=== PATIENT | male | born 1975 | race Caucasian/White ===

== ENCOUNTER 2017-10-21 14:53 | Emergency (ER) | payer OTHER ==
[2017-10-21] MEDS ORDERED: MORPHINE 4 MG/ML SYR ONE ×2 (16:28→19:51)
[2017-10-21] MEDS ORDERED: ONDANSETRON 4 MG/2 ML VIAL ONE ×2 (16:28→19:51)
--- NOTE | 2017-10-21 16:32 | RAD REPORT ---
EXAM DESCRIPTION: RAD - Foot Left 3 View - 10/21/2017 4:16 pm CLINICAL HISTORY: Left Foot pain FINDINGS: No fracture or dislocation is seen. A lateral soft tissue ulceration is present without underlying bony destruction seen
[2017-10-21 16:57] LABS: Absolute Lymphocytes (CBC) 2.4 K/uL (0.7-4.9); Absolute Monocytes 0.7 K/uL (0.1-1.3); Absolute Neutrophil 4.8 K/uL (1.8-8.0); Basophils % 0.6 % (0-1.3); Eosinophils % 3.3 % (0-4.4); Hematocrit 42.8 % (39.6-49.0); Lymphocytes % 28.8 % (15.3-44.8); MCH 33.1 pg (27.0-35.0); MPV 10.8 fL (7.6-11.3); RBC Red Blood Cell Count 4.56 M/uL (4.33-5.43)
[2017-10-21] MEDS ORDERED: INSULIN -REGULAR HUMAN 50 UNIT/0.5 ML ML ONE (16:58)
[2017-10-21 17:05] LABS: Protime INR 0.99
[2017-10-21 17:13] LABS: Urine Bacteria NONE SEEN /HPF (NONE SEEN); Urine Culture Reflex Order NOT NEEDED; Urine RBC NONE SEEN /HPF (NONE SEEN)
[2017-10-21] MEDS ORDERED: NA CHLORIDE 0.9% 1,000 ML ONE ×2 (17:13→18:42)
[2017-10-21 17:14] LABS: Bilirubin Direct 0.2 mg/dL (0-0.2); Bilirubin Total 0.6 mg/dL (0.2-1.0); C-Reactive Protein 5.61 mg/L (<3.00); Potassium 3.7 mmol/L (3.5-5.1); Protein, Total 7.2 g/dL (6.4-8.2)
[2017-10-21 17:14] LABS: Urine Blood NEGATIVE (NEG); Urine Glucose 2+ (NEG); Urine Protein NEGATIVE (NEG); Urine Specific Gravity <1.005 (1.005-1.030); Urine pH 5.5 (5.0-7.0)
[2017-10-21] MEDS ORDERED: FENTANYL CITR 100 MCG/2 ML ONE (17:44)
[2017-10-21] MEDS ORDERED: Levofloxacin500mg IV 500 MG/100 ML BAG IV ONE (18:43)
--- NOTE | 2017-10-21 20:54 | ER ---
Nurse's Notes [facility] Name: Filippo Miranda Age: 42 yrs Sex: Male : 1975 Arrival Date: 10/21/2017 Time: 14:58 Bed 6 Private MD: ZACH MOSQUEDA Diagnosis: Cellulitis of left lower limb-Left Foot;Diabetes mellitus due to underlying condition with hyperglycemia Presentation: 10/21 15:00 Presenting complaint: Patient states: quarter sized sore on under left 5th toe started sv Thursday. Pain goes up into the foot. c/o foul odor and drainage. Transition of care: patient was not received from another setting of care. Onset of symptoms was October 16, 2017. Care prior to arrival: None. 15:00 Method Of Arrival: Ambulatory sv 15:00 Acuity: RUBIA 3 sv 21:14 Risk Assessment: Do you want to hurt yourself or someone else? Patient reports no rv desire to harm self or others. Initial Sepsis Screen: Does the patient meet any 2 criteria? RR > 20 per min. HR > 90 bpm. Yes Does the patient have a suspected source of infection? Yes: Skin breakdown/wound. Historical: - Allergies: 15:03 PENICILLINS; sv - PMHx: 15:03 Diabetes - IDDM; Hypertension; neuropathy; pancreas doesn't work; sv - PSHx: 15:03 None; sv - Immunization history:: Adult Immunizations up to date. - Social history:: Smoking status: Patient uses tobacco products, smokes one-half pack cigarettes per day. - Ebola Screening: : No symptoms or risks identified at this time. Screenin:02 Abuse screen: Denies threats or abuse. Denies injuries from another. Nutritional hb screening: No deficits noted. Tuberculosis screening: No symptoms or risk factors identified. Fall Risk None identified. Assessment: 15:15 General: Appears in no apparent distress. comfortable, well groomed, well developed, sg well nourished, Behavior is calm, cooperative, appropriate for age. Pain: Complains of pain in right foot and left foot Quality of pain is described as stabbing, throbbing. Neuro: Level of Consciousness is awake, alert, obeys commands, Oriented to person, place, time, situation, Mini Bar Attendant are equal bilaterally Moves all extremities. Full function Speech is normal, Facial symmetry appears normal. Cardiovascular: Heart tones S1 S2 present Capillary refill is brisk in bilateral fingers toes Chest pain is denied. Respiratory: Airway is patent Respiratory effort is even, unlabored, Respiratory pattern is regular, symmetrical, Breath sounds are clear. GI: Abdomen is round non-distended, Bowel sounds present X 4 quads. : No signs and/or symptoms were reported regarding the genitourinary system. EENT: No deficits noted. Derm: No deficits noted. Skin is pink, warm \T\ dry. Musculoskeletal: Capillary refill is brisk, in bilateral fingers. toes. Swelling present in right foot and left foot dried blood noted around toe nails on BLE. 17:08 Reassessment: Patient appears in no apparent distress at this time. Patient and/or hb family updated on plan of care and expected duration. Pain level reassessed. Patient is alert, oriented x 3, equal unlabored respirations, skin warm/dry/pink. 18:00 Reassessment: Patient appears in no apparent distress at this time. Patient and/or hb family updated on plan of care and expected duration. Pain level reassessed. Patient is alert, oriented x 3, equal unlabored respirations, skin warm/dry/pink. 18:45 Reassessment: Patient appears in no apparent distress at this time. No changes from hb previously documented assessment. Patient and/or family updated on plan of care and expected duration. Pain level reassessed. Patient is alert, oriented x 3, equal unlabored respirations, skin warm/dry/pink. 19:00 Reassessment: RECD REPORT FROM KEM CRUM. 42YO WM P/W LEFT FOOT DIABETIC WOUND. ABX bp INFUSING PRIOR TO DISPO. bp. 20:01 Reassessment: Patient appears in no apparent distress at this time. Patient and/or rv family updated on plan of care and expected duration. Pain level reassessed. Patient is alert, oriented x 3, equal unlabored respirations, skin warm/dry/pink. second lactate drawn and sent to lab. patient is hungry, given cold sandwich. vital signs are stable. Vital Signs: 15:03 BP 141 / 72; Pulse 122; Resp 18; Temp 97.8; Pulse Ox 96% ; Weight 108.86 kg; Height 5 sv ft. 11 in. (180.34 cm); Pain 7/10; 17:00 BP 129 / 78; Pulse 100; Resp 16; Pulse Ox 98% on R/A; hb 18:44 BP 133 / 77; Pulse 89; Resp 17; Pulse Ox 100% on R/A; hb 19:00 BP 148 / 77; Pulse 88; Resp 16; Pulse Ox 99% ; hb 20:06 BP 139 / 91; Pulse 88; Resp 18; Pulse Ox 97% on R/A; rv 21:00 BP 137 / 83; Pulse 90; Resp 20; Pulse Ox 96% ; bp 15:03 Body Mass Index 33.47 (108.86 kg, 180.34 cm) sv ED Course: 14:58 Patient arrived in ED. sb2 14:59 ZACH MOSQUEDA is Private Physician. sb2 15:02 Triage completed. sv 15:04 Arm band placed on right wrist. sv 15:17 Wolfgang Beasley PA is PHCP. cp 15:17 Wes Breaux MD is Attending Physician. cp 15:28 Brooks Yuen, SKYLA is Primary Nurse. sg 15:45 Patient has correct armband on for positive identification. Bed in low position. Call hb light in reach. Side rails up X 1. 16:15 Initial lab(s) drawn, by me, sent to lab. First set of blood cultures drawn by me. sg Inserted saline lock: 20 gauge in right antecubital area, using aseptic technique. Blood collected. 16:16 XRAY Foot LEFT 3 View In Process Unspecified. EDMS 16:30 Second set of blood cultures drawn by me. sg 16:51 Urine collected: clean catch specimen, clear. dh3 20:53 ZACH MOSQUEDA is Referral Physician. cp 21:03 No provider procedures requiring assistance completed. IV discontinued, intact, bp bleeding controlled, No redness/swelling at site. Pressure dressing applied. Administered Medications: 16:42 Drug: morphine 4 mg Route: IVP; Site: right antecubital; sg 17:20 Follow up: Response: No adverse reaction; Pain is unchanged, physician notified hb 16:42 Drug: Zofran 4 mg Route: IVP; Site: right antecubital; sg 17:20 Follow up: Response: No adverse reaction; Nausea is decreased hb 17:00 Drug: Insulin Regular Human 5 units {Co-Signature: sg (Brooks Yuen RN).} Route: IVP; hb Site: right antecubital; 17:45 Follow up: Response: No adverse reaction; Blood sugar is lowered sg 17:19 Drug: NS 0.9% 1000 ml Route: IV; Rate: 1 bolus; Site: right antecubital; sg 17:45 Drug: fentaNYL (PF) 50 mcg Route: IVP; Site: right antecubital; sg 18:30 Follow up: Response: No adverse reaction; Pain is unchanged, physician notified sg 18:46 Drug: LevaQUIN 500 mg Volume: 100 ml; Route: IVPB; Infused Over: 60 mins; Site: right sg antecubital; 20:00 Drug: morphine 4 mg Route: IVP; Site: right antecubital; rv 20:55 Follow up: Response: No adverse reaction; Pain is decreased bp 20:00 Drug: Zofran 4 mg Route: IVP; Site: right antecubital; rv 20:55 Follow up: Response: Nausea is decreased bp Point of Care Testing: Blood Glucose: 17:47 Blood Glucose: 245 mg/dL; dh3 21:02 Blood Glucose: 266 mg/dL; bp Ranges: Outcome: 21:13 Discharge ordered by MD. rv 21:13 Discharged to home ambulatory. rv 21:13 Condition: improved 21:13 Discharge instructions given to patient, Instructed on discharge instructions, follow up and referral plans. medication usage. 21:15 Patient left the ED. rv Addendum: 10/27/2017 08:00 Addendum: Culture Results: Positive urine culture. Phone call Attempt #1 attempted to s s call patient, no answer. Left VM. Signatures: Dispatcher [employer] Suzanne Terrell RN RN Brooks Yuen RN RN sg Smirch, Shelby, RN RN ss Wolfgang Beasley PA PA cp Jacklyn Mcfarland RN RN [place] 3 Rob Starr RN RN bp Amber Chun 2 Jose Antonio Silva RN RN rv Brooks Yuen RN sg Corrections: (The following items were deleted from the chart) 10/21 19:44 19:00 Reassessment: RECD REPORT FROM KEM CRUM. 42YO WM P/W LEFT FOOT DIABETIC WOUND. bp ABX INFUSING PRIOR TO DISPO hb 21:14 20:54 Discharge ordered by MD. cp rv
--- NOTE | 2017-10-21 20:55 | EDPHYS ---
Physician Documentation [facility] Name: Filippo Miranda Age: 42 yrs Sex: Male : 1975 Arrival Date: 10/21/2017 Time: 14:58 Bed 6 Private MD: ZACH MOSQUEDA ED Physician Wes Breaux HPI: 10/21 15:45 This 42 yrs old Male presents to ER via Ambulatory with complaints of Foot cp Pain - diabetic sore. 15:45 The patient presents with pain, that is acute, swelling, tenderness, pressure ulcer. cp 15:45 The complaints affect the left foot. Onset: The symptoms/episode began/occurred 1 cp week(s) ago. Associated signs and symptoms: Pertinent positives: warmth, Pertinent negatives calf tenderness, fever. Treatment prior to arrival includes: currently taking oral Bactrim. Severity of symptoms: in the emergency department the symptoms are unchanged. Historical: - Allergies: 15:03 PENICILLINS; sv - PMHx: 15:03 Diabetes - IDDM; Hypertension; neuropathy; pancreas doesn't work; sv - PSHx: 15:03 None; sv - Immunization history:: Adult Immunizations up to date. - Social history:: Smoking status: Patient uses tobacco products, smokes one-half pack cigarettes per day. - Ebola Screening: : No symptoms or risks identified at this time. ROS: 15:52 Constitutional: Negative for body aches, chills, fever, poor PO intake. cp 15:52 Eyes: Negative for injury, pain, redness, and discharge. cp 15:52 ENT: Negative for drainage from ear(s), ear pain, sore throat, difficulty swallowing, difficulty handling secretions. 15:52 Cardiovascular: Negative for chest pain, edema, palpitations. 15:52 Respiratory: Negative for cough, shortness of breath, wheezing. 15:52 Abdomen/GI: Negative for abdominal pain, nausea, vomiting, and diarrhea, black/tarry stool, rectal bleeding. 15:52 MS/extremity: Positive for erythema, pain, swelling, tenderness, warmth, of the left foot, pressure ulcer. 15:52 Skin: Positive for cellulitis, of the left foot. 15:52 Neuro: Negative for altered mental status, headache. 15:52 All other systems are negative. Exam: 15:58 Constitutional: The patient appears in no acute distress, alert, awake, non-toxic, well cp developed, well nourished. 15:58 Head/Face: Normocephalic, atraumatic. cp 15:58 Eyes: Periorbital structures: appear normal, Conjunctiva: normal, no exudate, no injection, Sclera: no appreciated abnormality, Lids and lashes: appear normal, bilaterally. 15:58 ENT: External ear(s): are unremarkable, Nose: is normal, Mouth: is normal, Posterior pharynx: is normal, airway is patent, no erythema, no exudate. 15:58 Chest/axilla: Inspection: normal, Palpation: is normal, no crepitus, no tenderness. 15:58 Cardiovascular: Rate: tachycardic, Rhythm: regular, Pulses: Pulses are 1+ in left dorsalis pedis artery. Edema: is not appreciated, JVD: is not appreciated. 15:58 Respiratory: the patient does not display signs of respiratory distress, Respirations: normal, no use of accessory muscles, no retractions, no splinting, no tachypnea, labored breathing, is not present, Breath sounds: are clear throughout, no decreased breath sounds, no stridor, no wheezing. 15:58 Abdomen/GI: Inspection: abdomen appears normal, Palpation: abdomen is soft and non-tender, in all quadrants. 15:58 Back: pain, is absent, ROM is normal. 15:58 Skin: cellulitis, that is mild, patchy, on the left foot, pressure ulcer lateral aspect proximal to fifth toe. 15:58 Neuro: Orientation: to person, place \T\ time. Mentation: is normal, Cerebellar function: is grossly normal, Motor: moves all fours, strength is normal, Sensation: no obvious gross deficits. 17:02 ECG was reviewed by the Attending Physician. cp Vital Signs: 15:03 BP 141 / 72; Pulse 122; Resp 18; Temp 97.8; Pulse Ox 96% ; Weight 108.86 kg; Height 5 sv ft. 11 in. (180.34 cm); Pain 7/10; 17:00 BP 129 / 78; Pulse 100; Resp 16; Pulse Ox 98% on R/A; hb 18:44 BP 133 / 77; Pulse 89; Resp 17; Pulse Ox 100% on R/A; hb 19:00 BP 148 / 77; Pulse 88; Resp 16; Pulse Ox 99% ; hb 20:06 BP 139 / 91; Pulse 88; Resp 18; Pulse Ox 97% on R/A; rv 21:00 BP 137 / 83; Pulse 90; Resp 20; Pulse Ox 96% ; bp 15:03 Body Mass Index 33.47 (108.86 kg, 180.34 cm) sv MDM: 15:22 Patient medically screened. cp 16:00 Differential diagnosis: abscess, cellulitis, osteomyelitis, sepsis, DKA. cp 20:52 Data reviewed: vital signs, nurses notes, lab test result(s), EKG, radiologic studies, cp plain films. 20:52 Test interpretation: by ED physician or midlevel provider: plain radiologic studies. cp Counseling: I had a detailed discussion with the patient and/or guardian regarding: the historical points, exam findings, and any diagnostic results supporting the discharge/admit diagnosis, lab results, radiology results, the need for outpatient follow up, a family practitioner, to return to the emergency department if symptoms worsen or persist or if there are any questions or concerns that arise at home. Response to treatment: the patient's symptoms have markedly improved after treatment, VSS. Pain improved. Will discharge to home for continued monitoring. 10/21 15:49 Order name: Urine Microscopic Only; Complete Time: 17:28 cp 10/21 15:49 Order name: Basic Metabolic Panel; Complete Time: 17:28 cp 10/21 17:28 Interpretation: Normal except: NA 133; GLUC 330; GFR 66. cp 10/21 15:49 Order name: Blood Culture Adult (2) cp 10/21 15:49 Order name: C-Reactive Protein; Complete Time: 17:28 cp 10/21 15:49 Order name: CBC with Diff; Complete Time: 17:28 cp 10/21 15:49 Order name: Lactate; Complete Time: 17:28 cp 10/21 17:28 Interpretation: Abnormal: LAC 2.3. cp 10/21 15:49 Order name: LFT's; Complete Time: 17:28 cp 10/21 15:49 Order name: Procalcitonin; Complete Time: 17:43 cp 10/21 15:49 Order name: Protime (+inr); Complete Time: 17:28 cp 10/21 15:49 Order name: Ptt, Activated; Complete Time: 17:28 cp 10/21 15:49 Order name: Sed Rate; Complete Time: 17:28 cp 04 16:53 Order name: Urine Dipstick--Ancillary (enter results); Complete Time: 17:28 em1 10/21 16:53 Order name: Glucose, Ancillary Testing; Complete Time: 16:56 EDMS 04 18:52 Order name: Wound Culture sg 10/21 15:49 Order name: Accucheck; Complete Time: 16:50 cp 10/21 15:49 Order name: Cardiac monitoring; Complete Time: 16:50 cp 10/21 15:49 Order name: EKG - Nurse/Tech; Complete Time: 16:51 cp 04 15:49 Order name: IV Saline Lock - Large Bore; Complete Time: 16:50 cp 04 15:49 Order name: Labs collected and sent; Complete Time: 16:50 cp /04 15:49 Order name: XRAY Foot LEFT 3 View; Complete Time: 16:43 cp 04 20:23 Order name: Lactate Sepsis 2 HR Follow-up; Complete Time: 20:50 EDMS 10/21 15:49 Order name: O2 Per Protocol; Complete Time: 16:50 cp 10/21 15:49 Order name: O2 Sat Monitoring; Complete Time: 16:50 cp 04 15:49 Order name: Urine Dipstick-Ancillary (obtain specimen); Complete Time: 16:50 cp /04 20:51 Order name: Accucheck Blood Glucose; Complete Time: 21:01 cp EC:02 Rate is 100 beats/min. Rhythm is regular. MI interval is normal. QRS interval is cp normal. QT interval is normal. T waves are Inverted in lead III. No ST changes noted. Interpreted by me. Reviewed by me. Administered Medications: 16:42 Drug: morphine 4 mg Route: IVP; Site: right antecubital; sg 17:20 Follow up: Response: No adverse reaction; Pain is unchanged, physician notified hb 16:42 Drug: Zofran 4 mg Route: IVP; Site: right antecubital; sg 17:20 Follow up: Response: No adverse reaction; Nausea is decreased hb 17:00 Drug: Insulin Regular Human 5 units {Co-Signature: sg (Brooks Yuen RN).} Route: IVP; hb Site: right antecubital; 17:45 Follow up: Response: No adverse reaction; Blood sugar is lowered sg 17:19 Drug: NS 0.9% 1000 ml Route: IV; Rate: 1 bolus; Site: right antecubital; sg 17:45 Drug: fentaNYL (PF) 50 mcg Route: IVP; Site: right antecubital; sg 18:30 Follow up: Response: No adverse reaction; Pain is unchanged, physician notified sg 18:46 Drug: LevaQUIN 500 mg Volume: 100 ml; Route: IVPB; Infused Over: 60 mins; Site: right sg antecubital; 20:00 Drug: morphine 4 mg Route: IVP; Site: right antecubital; rv 20:55 Follow up: Response: No adverse reaction; Pain is decreased bp 20:00 Drug: Zofran 4 mg Route: IVP; Site: right antecubital; rv 20:55 Follow up: Response: Nausea is decreased bp Point of Care Testing: Blood Glucose: 17:47 Blood Glucose: 245 mg/dL; dh3 21:02 Blood Glucose: 266 mg/dL; bp Ranges: Critical Glucose Levels:Adult <50 mg/dl or >400 mg/dl <40 mg/dl or >180 mg/dl Disposition: 10/22 07:23 Co-signature as Attending Physician, Wes Breaux MD. rn Disposition: 10/21/17 20:54 Discharged to Home. Impression: Cellulitis of left lower limb - Left Foot, Diabetes mellitus due to underlying condition with hyperglycemia. - Condition is Stable. - Discharge Instructions: Cellulitis. - Prescriptions for Levaquin 500 mg Oral Tablet - take 1 tablet by ORAL route once daily for 10 days; 10 tablet. Tylenol- Codeine #3 300-30 mg Oral Tablet - take 2 tablets by ORAL route every 6 hours As needed; 20 tablet. Bactrim DS 800- 160 mg Oral Tablet - take 1 tablet by ORAL route every 12 hours for 10 days; 20 tablet. - Medication Reconciliation Form, Thank You Letter, Antibiotic Education, Prescription Opioid Use form. - Follow up: ZACH MOSQUEDA; When: 48 Hours; Reason: Wound Recheck. - Problem is an ongoing problem. - Symptoms have improved. Signatures: Dispatcher [employer] Suzanne Terrell RN RN sv Gay, Steven, RN RN sg Nieto, Roman, MD MD rn Page, Corey, PA PA cp Baxter Jacklyn, RN RN Rob Starr, RN RN bp Jose Antonio Silva, RN RN rv Brooks Yuen RN sg Corrections: (The following items were deleted from the chart) 10/21 20:55 20:54 10/21/2017 20:54 Discharged to Home. Impression: Cellulitis of left lower limb - cp Left Foot. Condition is Stable. Forms are Medication Reconciliation Form, Thank You Letter, Antibiotic Education, Prescription Opioid Use. Follow up: ZACH MOSQUEDA; When: 48 Hours; Reason: Wound Recheck. Problem is an ongoing problem. Symptoms have improved. cp 21:15 20:55 10/21/2017 20:54 Discharged to Home. Impression: Cellulitis of left lower limb - rv Left Foot; Diabetes mellitus due to underlying condition with hyperglycemia. Condition is Stable. Discharge Instructions: Cellulitis. Prescriptions for Levaquin 500 mg Oral Tablet - take 1 tablet by ORAL route once daily for 10 days; 10 tablet, Tylenol-Codeine #3 300-30 mg Oral Tablet - take 2 tablets by ORAL route every 6 hours As needed; 20 tablet, Bactrim DS 800-160 mg Oral Tablet - take 1 tablet by ORAL route every 12 hours for 10 days; 20 tablet. and Forms are Medication Reconciliation Form, Thank You Letter, Antibiotic Education, Prescription Opioid Use. Follow up: ZACH MOSQUEDA; When: 48 Hours; Reason: Wound Recheck. Problem is an ongoing problem. Symptoms have improved. cp
[2017-10-21 21:29] VITALS: TEMP 97.8
[2017-10-21 21:34] VITALS: BP 137/83; O2SAT 96
--- NOTE | 2017-10-22 10:18 | EKG ---
Test Date: 2017-10-21 Test Time: 16:55:18 Cookie Padder: SWG MEASUREMENT RESULTS: Intervals: Rate: 100 MN: 176 QRSD: 86 QT: 344 QTc: 443 [place]: P: 38 MN: 176 QRS: 77 T: 4 INTERPRETIVE STATEMENTS: Normal sinus rhythm Normal ECG Compared to ECG 04/16/2016 23:36:12 Sinus tachycardia no longer present Right-axis deviation no longer present Electronically Signed On 10-22-17 10:17:23 CDT by Stephen Gates
== END 2017-10-21 21:15 | disposition home or self-care (01) ==
LOC: ER 14:53
DX: L03.116 Cellulitis of left lower limb (principal); E08.65 Diabetes mellitus due to underlying condition with hyperglycemia; I10 Essential (primary) hypertension; F17.210 Nicotine dependence, cigarettes, uncomplicated; Z88.0 Allergy status to penicillin
CPT/HCPCS: 36415; 80048; 80076; 81003; 81015; 82962; 83605; 84145; 85025; 85610; 85652; 85730; 86140; 87040; 87070; 87077; 87186; 87205; 93005; 96374; 96375; 99284; J2405; J3010; J7030

== ENCOUNTER 2017-11-09 21:15 | Emergency (ER) | payer OTHER ==
[2017-11-09] MEDS ORDERED: NA CHLORIDE 0.9% 1,000 ML ONE ×2 (22:01→23:06)
[2017-11-09] MEDS ORDERED: HYDROCODONE/APAP 10/325 TAB ONE (22:01)
--- NOTE | 2017-11-09 22:05 | RAD REPORT ---
EXAM DESCRIPTION: RAD - Foot Left 3 View - 11/09/2017 9:52 pm CLINICAL HISTORY: Left Foot pain and swelling FINDINGS: No fracture or dislocation is seen. No bony destructive lesion is seen
[2017-11-09 22:21] LABS: Absolute Lymphocytes (CBC) 2.4 K/uL (0.7-4.9); Absolute Monocytes 0.8 K/uL (0.1-1.3); Absolute Neutrophil 6.2 K/uL (1.8-8.0); Basophils % 0.4 % (0-1.3); Eosinophils % 1.8 % (0-4.4); Hematocrit 42.3 % (39.6-49.0); Lymphocytes % 25.1 % (15.3-44.8); MCH 32.9 pg (27.0-35.0); MCV 95.6 fL (80-100); MPV 10.8 fL (7.6-11.3); Monocytes % 8.1 % (3.3-12.3); RBC Red Blood Cell Count 4.43 M/uL (4.33-5.43)
[2017-11-09 22:50] LABS: Albumin 4.2 g/dL (3.4-5.0); Bilirubin Direct 0.1 mg/dL (0-0.2); Bilirubin Total 0.5 mg/dL (0.2-1.0); Potassium 4.2 mmol/L (3.5-5.1); Protein, Total 7.4 g/dL (6.4-8.2)
[2017-11-09] MEDS ORDERED: INSULIN -REGULAR HUMAN 50 UNIT/0.5 ML ML ONE (23:06)
[2017-11-09] MEDS ORDERED: MORPHINE 4 MG/ML SYR ONE (23:46)
[2017-11-10] MEDS ORDERED: MORPHINE 4 MG/ML SYR ONE (01:54)
--- NOTE | 2017-11-10 02:06 | EDPHYS ---
Physician Documentation [facility] Name: Filippo Miranda Age: 42 yrs Sex: Male : 1975 Arrival Date: 11/09/2017 Time: 21:17 Bed 19 Private MD: ZACH MOSQUEDA ED Physician Tad Eubanks HPI: 11/09 22:30 This 42 yrs old Male presents to ER via Ambulatory with complaints of SORE ON pm1 FOOT. 22:30 Patient presents to ED for recheck of: Ulcer on left foot. The affected area is on the pm1 ball of left foot. Previous treatment: Outpatient prescription(s): The patient was given prescription(s) for Bactrim, Levaquin. Progress: The patient reports no change in. The patient has experienced similar episodes in the past, chronically, Patient with chronic wound to left foot. Patient was seen here in the ER on 10/21/2017 for the same complaint. Patient was evaluated and discharged home with antibiotics. Patient reports no worsening or improvement of wound. No fevers. Patient completed his antibiotics but has not followed up with his PCP or wound care. Historical: - Allergies: 21:26 PENICILLINS; ak1 - Home Meds: 21:26 diclofenac sodium 75 mg Oral TbEC 1 tab 2 times per day [Active]; Jardiance 10 mg Oral ak1 tab 1 tab [Active]; NOVALOG 70/30 [Active]; metoprolol tartrate 50 mg Oral tab 1 tab once daily [Active]; lisinopril 10 mg Oral tab 1 tab once daily [Active]; levemir [Active]; - PMHx: 21:26 Hypertension; neuropathy; pancreas doesn't work; Diabetes - IDDM; ak1 - PSHx: 21:26 None; ak1 - Immunization history:: Adult Immunizations unknown. - Social history:: Smoking status: unknown. - Ebola Screening: : No symptoms or risks identified at this time. ROS: 22:30 Constitutional: Negative for fever, chills, and weight loss, Eyes: Negative for injury, pm1 pain, redness, and discharge, ENT: Negative for injury, pain, and discharge, Neck: Negative for injury, pain, and swelling, Cardiovascular: Negative for chest pain, palpitations, and edema, Respiratory: Negative for shortness of breath, cough, wheezing, and pleuritic chest pain, Abdomen/GI: Negative for abdominal pain, nausea, vomiting, diarrhea, and constipation, Back: Negative for injury and pain, : Negative for injury, bleeding, discharge, and swelling, MS/Extremity: Negative for injury and deformity. 22:30 Neuro: Negative for headache, weakness, numbness, tingling, and seizure. 22:30 Skin: Positive for ulceration, of the ball of left foot. Exam: 22:30 Constitutional: This is a well developed, well nourished patient who is awake, alert, pm1 and in no acute distress. Head/Face: Normocephalic, atraumatic. Chest/axilla: Normal chest wall appearance and motion. Nontender with no deformity. No lesions are appreciated. Cardiovascular: Regular rate and rhythm with a normal S1 and S2. No gallops, murmurs, or rubs. Normal PMI, no JVD. No pulse deficits. Respiratory: Lungs have equal breath sounds bilaterally, clear to auscultation and percussion. No rales, rhonchi or wheezes noted. No increased work of breathing, no retractions or nasal flaring. Abdomen/GI: Soft, non-tender, with normal bowel sounds. No distension or tympany. No guarding or rebound. No evidence of tenderness throughout. Back: No spinal tenderness. No costovertebral tenderness. Full range of motion. 22:30 Skin: Appearance: normal except for affected area, Small 1 cm ulceration proximal to pm1 left fifth toe on the ball of left foot. No drainage. Mild cellulitis present surrounding ulceration. Vital Signs: 21:23 Pulse 110; Resp 20; Temp 98.7; Pulse Ox 98% on R/A; Weight 108.86 kg (R); Height 5 ft. ak1 11 in. (180.34 cm) (R); Pain 8/10; 21:30 BP 166 / 99; jd3 22:10 BP 135 / 74; Pulse 84; Resp 17 S; Pulse Ox 100% on R/A; jd3 23:09 BP 134 / 75; Pulse 81; Resp 17 S; Pulse Ox 100% on R/A; jd3 23:59 BP 136 / 83; Pulse 82; Resp 16 S; Pulse Ox 97% on R/A; jd3 11/10 00:56 BP 138 / 79; Pulse 75; Resp 16 S; Pulse Ox 98% on R/A; jd3 01:56 BP 124 / 61; Pulse 79; Resp 16 S; Pulse Ox 97% on R/A; jd3 11/09 21:23 Body Mass Index 33.47 (108.86 kg, 180.34 cm) ak1 MDM: 11/09 21:25 Patient medically screened. pm1 11/10 01:16 Data reviewed: vital signs. Data interpreted: Pulse oximetry: on room air is 98 %. pm1 Interpretation: normal. Counseling: I had a detailed discussion with the patient and/or guardian regarding: the historical points, exam findings, and any diagnostic results supporting the discharge/admit diagnosis, lab results, radiology results, the need for outpatient follow up, to return to the emergency department if symptoms worsen or persist or if there are any questions or concerns that arise at home. 01:16 ED course: discussed with patient that he needs to follow up with wound care for pm1 definitive care either directly or through his PCP. 02:10 ED course: Reviewed prior wound culture on 10/21/2017 visit. Will discharge patient home pm1 with Levaquin. 11/09 21:39 Order name: CBC with Diff; Complete Time: 22:51 pm1 11/09 21:39 Order name: BMP; Complete Time: 22:52 pm1 11/09 21:39 Order name: Foot Left 3 View XRAY; Complete Time: 22:06 pm1 11/09 21:39 Order name: LFT's; Complete Time: 22:52 pm1 11/09 21:39 Order name: Procalcitonin; Complete Time: 22:57 pm1 11/09 21:39 Order name: IV Saline Lock; Complete Time: 21:56 pm1 Administered Medications: 11/09 22:04 Drug: [place] 10 mg-325 mg 1 tabs Route: PO; jd3 23:49 Follow up: Response: No adverse reaction jd3 22:04 Drug: NS 0.9% 1000 ml Route: IV; Rate: 1000 ml; Site: right antecubital; jd3 23:49 Follow up: Response: No adverse reaction; IV Status: Completed infusion; IV Intake: jd3 1000ml 23:08 Drug: NS 0.9% 1000 ml Route: IV; Rate: 1000 ml; Site: right antecubital; jd3 11/10 00:25 Follow up: Response: No adverse reaction; IV Status: Completed infusion; IV Intake: jd3 1000ml 11/09 23:08 Drug: Insulin Regular Human 10 units {Co-Signature: bs1 (Lisa Faustin RN).} Route: jd3 IVP; Site: right antecubital; 23:48 Follow up: Response: No adverse reaction; Blood sugar is lowered jd3 23:48 Drug: morphine 4 mg Route: IVP; Site: right antecubital; jd3 11/10 00:25 Follow up: Response: No adverse reaction jd3 01:55 Drug: morphine 4 mg Route: IVP; Site: right antecubital; jd3 02:20 Follow up: Response: No adverse reaction jd3 02:20 Drug: LevaQUIN 500 mg Route: PO; jd3 02:20 Follow up: Response: Medication administered at discharge. jd3 Point of Care Testing: Blood Glucose: 00:00 Blood Glucose: 298 mg/dL; jd3 02:04 Blood Glucose: 304 mg/dL; jd3 Ranges: Critical Glucose Levels:Adult <50 mg/dl or >400 mg/dl <40 mg/dl or >180 mg/dl Disposition: : Co-signature as Attending Physician, Tad Eubanks MD. Disposition: 11/10/17 02:05 Discharged to Home. Impression: Cellulitis of left lower limb. - Condition is Stable. - Discharge Instructions: Cellulitis, Adult. - Prescriptions for Levaquin 500 mg Oral Tablet - take 1 tablet by ORAL route once daily for 10 days; 10 tablet. Tramadol 50 mg Oral Tablet - take 1 tablet by ORAL route every 8 hours as needed; 12 tablet. - Medication Reconciliation Form, Thank You Letter, Antibiotic Education, Prescription Opioid Use form. - Follow up: Emergency Department; When: As needed; Reason: Worsening of condition. Follow up: Private Physician; When: 2 - 3 days; Reason: Recheck today's complaints, Continuance of care, Re-evaluation by your physician. - Problem is new. - Symptoms have improved. Signatures: Dispatcher [employer] EDMS Maris Baker RN RN ak1 David Best, TOP AND TRIM WORKER TOP AND TRIM WORKER pm1 Tad Eubanks MD MD Rell Connolly RN RN jd3 Lisa Faustin RN bs1 Corrections: (The following items were deleted from the chart) 02:23 02:05 11/10/2017 02:05 Discharged to Home. Impression: Cellulitis of left lower limb. jd3 Condition is Stable. Forms are Medication Reconciliation Form, Thank You Letter, Antibiotic Education, Prescription Opioid Use. Follow up: Emergency Department; When: As needed; Reason: Worsening of condition. Follow up: Private Physician; When: 2 - 3 days; Reason: Recheck today's complaints, Continuance of care, Re-evaluation by your physician. Problem is new. Symptoms have improved. pm1
--- NOTE | 2017-11-10 02:06 | ER ---
Nurse's Notes [facility] Name: Filippo Miranda Age: 42 yrs Sex: Male : 1975 Arrival Date: 11/09/2017 Time: 21:17 Bed 19 Private MD: ZACH MOSQUEDA Diagnosis: Cellulitis of left lower limb Presentation: 11/09 21:24 Presenting complaint: Patient states: wound to bottom of left foot. pt seen 10/21/17 for ak1 same issue given bactruim and finished the course. pt c/o increased pain and decreased healing of wound. Transition of care: patient was not received from another setting of care. Onset of symptoms is unknown. Risk Assessment: Do you want to hurt yourself or someone else? Patient reports no desire to harm self or others. Initial Sepsis Screen: Does the patient meet any 2 criteria? No. Patient's initial sepsis screen is negative. Does the patient have a suspected source of infection? No. Patient's initial sepsis screen is negative. Care prior to arrival: None. 21:24 Method Of Arrival: Ambulatory ak1 21:24 Acuity: RUBIA 3 ak1 Historical: - Allergies: 21:26 PENICILLINS; ak1 - Home Meds: 21:26 diclofenac sodium 75 mg Oral TbEC 1 tab 2 times per day [Active]; Jardiance 10 mg Oral ak1 tab 1 tab [Active]; NOVALOG 70/30 [Active]; metoprolol tartrate 50 mg Oral tab 1 tab once daily [Active]; lisinopril 10 mg Oral tab 1 tab once daily [Active]; levemir [Active]; - PMHx: 21:26 Hypertension; neuropathy; pancreas doesn't work; Diabetes - IDDM; ak1 - PSHx: 21:26 None; ak1 - Immunization history:: Adult Immunizations unknown. - Social history:: Smoking status: unknown. - Ebola Screening: : No symptoms or risks identified at this time. Screenin:29 Abuse screen: Denies threats or abuse. Nutritional screening: No deficits noted. jd3 Tuberculosis screening: No symptoms or risk factors identified. Fall Risk Ambulatory Aid- None/Bed Rest/Nurse Assist (0 pts). Gait- Normal/Bed Rest/Wheelchair (0 pts) Mental Status- Oriented to own ability (0 pts). Total Martinez Fall Scale indicates No Risk (0-24 pts). Assessment: 21:26 General: Appears in no apparent distress. uncomfortable, Behavior is calm, cooperative, jd3 appropriate for age. Pain: Complains of pain in ball of left foot Pain radiates to left foot Quality of pain is described as aching, tender. Neuro: Level of Consciousness is awake, alert, obeys commands, Oriented to person, place, time, situation, Appropriate for age. Cardiovascular: Capillary refill < 3 seconds Patient's skin is warm and dry. Pulses are palpable in right posterior tibial artery, right dorsalis pedis artery, left posterior tibial artery and left dorsalis pedis artery. Respiratory: Airway is patent Respiratory effort is even, unlabored, Respiratory pattern is regular, symmetrical. GI: No signs and/or symptoms were reported involving the gastrointestinal system. : No signs and/or symptoms were reported regarding the genitourinary system. EENT: No signs and/or symptoms were reported regarding the EENT system. Derm: Skin is intact, Skin is dry, Skin is normal, Skin temperature is warm Wound noted ball of left foot Wound is red, open, raised, with foul odder. quater in size. Musculoskeletal: Circulation, motion, and sensation intact. Range of motion: intact in all extremities. 22:12 Reassessment: Patient appears in no apparent distress at this time. Patient and/or jd3 family updated on plan of care and expected duration. Pain level reassessed. Patient is alert, oriented x 3, equal unlabored respirations, skin warm/dry/pink. 23:09 Reassessment: Patient appears in no apparent distress at this time. Patient and/or jd3 family updated on plan of care and expected duration. Pain level reassessed. Patient is alert, oriented x 3, equal unlabored respirations, skin warm/dry/pink. 11/10 00:00 Reassessment: Patient appears in no apparent distress at this time. Patient and/or jd3 family updated on plan of care and expected duration. Pain level reassessed. Patient is alert, oriented x 3, equal unlabored respirations, skin warm/dry/pink. 01:56 Reassessment: Patient appears in no apparent distress at this time. Patient and/or jd3 family updated on plan of care and expected duration. Pain level reassessed. Patient is alert, oriented x 3, equal unlabored respirations, skin warm/dry/pink. 02:22 Reassessment: Patient appears in no apparent distress at this time. Patient and/or jd3 family updated on plan of care and expected duration. Pain level reassessed. Patient is alert, oriented x 3, equal unlabored respirations, skin warm/dry/pink. pt reported understanding of discharge instructions, even and steady gait upon discharge. Vital Signs: 11/09 21:23 Pulse 110; Resp 20; Temp 98.7; Pulse Ox 98% on R/A; Weight 108.86 kg (R); Height 5 ft. ak1 11 in. (180.34 cm) (R); Pain 8/10; 21:30 BP 166 / 99; jd3 22:10 BP 135 / 74; Pulse 84; Resp 17 S; Pulse Ox 100% on R/A; jd3 23:09 BP 134 / 75; Pulse 81; Resp 17 S; Pulse Ox 100% on R/A; jd3 23:59 BP 136 / 83; Pulse 82; Resp 16 S; Pulse Ox 97% on R/A; jd3 11/10 00:56 BP 138 / 79; Pulse 75; Resp 16 S; Pulse Ox 98% on R/A; jd3 01:56 BP 124 / 61; Pulse 79; Resp 16 S; Pulse Ox 97% on R/A; jd3 11/09 21:23 Body Mass Index 33.47 (108.86 kg, 180.34 cm) ak1 ED Course: 11/09 21:17 Patient arrived in ED. es 21:18 ZACH MOSQUEDA is Private Physician. es 21:25 Triage completed. ak1 21:25 David Best NP is PHCP. pm1 21:25 Tad Eubanks MD is Attending Physician. pm1 21:26 Rell Connolly RN is Primary Nurse. jd3 21:26 Arm band placed on Patient placed in an exam room, on a stretcher, Patient notified of ak1 wait time. 21:30 Patient has correct armband on for positive identification. Bed in low position. Call jd3 light in reach. Side rails up X 1. 21:49 X-ray completed. Portable x-ray completed in exam room. Patient tolerated procedure bb2 well. 21:50 Foot Left 3 View XRAY In Process Unspecified. EDMS 21:53 Inserted saline lock: 20 gauge in right antecubital area, using aseptic technique. jd3 Blood collected. 22:51 Notified Nurse Practitioner and/or Physician Acid Bleacher of a critical lab result(s), ak1 glucose 443. 11/10 02:21 No provider procedures requiring assistance completed. IV discontinued, intact, jd3 bleeding controlled, No redness/swelling at site. Pressure dressing applied. Administered Medications: 11/09 22:04 Drug: [place] 10 mg-325 mg 1 tabs Route: PO; jd3 23:49 Follow up: Response: No adverse reaction jd3 22:04 Drug: NS 0.9% 1000 ml Route: IV; Rate: 1000 ml; Site: right antecubital; jd3 23:49 Follow up: Response: No adverse reaction; IV Status: Completed infusion; IV Intake: jd3 1000ml 23:08 Drug: NS 0.9% 1000 ml Route: IV; Rate: 1000 ml; Site: right antecubital; jd3 11/10 00:25 Follow up: Response: No adverse reaction; IV Status: Completed infusion; IV Intake: jd3 1000ml 11/09 23:08 Drug: Insulin Regular Human 10 units {Co-Signature: bs1 (Lisa Faustin RN).} Route: jd3 IVP; Site: right antecubital; 23:48 Follow up: Response: No adverse reaction; Blood sugar is lowered jd3 23:48 Drug: morphine 4 mg Route: IVP; Site: right antecubital; jd3 11/10 00:25 Follow up: Response: No adverse reaction jd3 01:55 Drug: morphine 4 mg Route: IVP; Site: right antecubital; jd3 02:20 Follow up: Response: No adverse reaction jd3 02:20 Drug: LevaQUIN 500 mg Route: PO; jd3 02:20 Follow up: Response: Medication administered at discharge. jd3 Point of Care Testing: Blood Glucose: 00:00 Blood Glucose: 298 mg/dL; jd3 02:04 Blood Glucose: 304 mg/dL; jd3 Ranges: Intake: 11/09 23:49 IV: 1000ml; Total: 1000ml. jd3 11/10 00:25 IV: 1000ml; Total: 2000ml. jd3 Outcome: 02:05 Discharge ordered by . pm1 02:21 Discharged to home ambulatory, with family. jd3 02:21 Condition: stable 02:21 Discharge instructions given to patient, Instructed on discharge instructions, follow up and referral plans. medication usage, Demonstrated understanding of instructions, follow-up care, medications, Prescriptions given X 2. 02:23 Patient left the ED. jd3 Signatures: Dispatcher [employer] Moira Clark Amber RN RN ak1 David Best, EXCEPTIONAL STUDENT EDUCATION TEACHER EXCEPTIONAL STUDENT EDUCATION TEACHER pm1 Rell Connolly RN RN [email or web address] Lisa Sosa bb2 Lisa Faustin RN bs1 Corrections: (The following items were deleted from the chart) 11/09 21:29 21:26 Cardiovascular: Capillary refill < 3 seconds Patient's skin is warm and dry. jd3 jd3
[2017-11-10] MEDS ORDERED: levoFLOXacin 500 MG TAB ONE (02:18)
[2017-11-10 02:36] VITALS: TEMP 98.7
[2017-11-10 02:42] VITALS: BP 124/61; O2SAT 97
== END 2017-11-10 02:23 | disposition home or self-care (01) ==
LOC: ER 21:15
DX: L03.116 Cellulitis of left lower limb (principal); I10 Essential (primary) hypertension; E11.9 Type 2 diabetes mellitus without complications; Z88.0 Allergy status to penicillin; Z79.4 Long term (current) use of insulin
CPT/HCPCS: 36415; 80048; 80076; 82962; 84145; 85025; 96361; 96374; 96375; 99284; J7030

== ENCOUNTER 2017-11-16 01:48 | Emergency (ER) | payer OTHER ==
[2017-11-16 02:26] LABS: Arterial Blood Carboxyhemoglob 7.2 % (0-1.5); Blood Gas Oxyhemoglobin 84.2 % (94-97); Blood O2 Saturation 91.9 % (92-98.5)
[2017-11-16 02:41] LABS: Absolute Lymphocytes (CBC) 3.2 K/uL (0.7-4.9); Absolute Monocytes 0.5 K/uL (0.1-1.3); Absolute Neutrophil 4.2 K/uL (1.8-8.0); Basophils % 0.8 % (0-1.3); Eosinophils % 2.9 % (0-4.4); Hematocrit 43.5 % (39.6-49.0); Lymphocytes % 39.1 % (15.3-44.8); MCH 32.9 pg (27.0-35.0); MCV 95.2 fL (80-100); MPV 10.8 fL (7.6-11.3); Monocytes % 6.4 % (3.3-12.3); RBC Red Blood Cell Count 4.57 M/uL (4.33-5.43)
[2017-11-16 02:53] LABS: Potassium 3.7 mmol/L (3.5-5.1)
[2017-11-16 03:10] LABS: Barbiturates NEGATIVE (NEGATIVE); Benzodiazepines NEGATIVE (NEGATIVE); Cocaine NEGATIVE (NEGATIVE); METHAMPHETAM POSITIVE (NEGATIVE); Methadone NEGATIVE (NEGATIVE); Opiates NEGATIVE (NEGATIVE); Phencyclidine NEGATIVE (NEGATIVE); THC Cannibis NEGATIVE (NEGATIVE)
[2017-11-16 03:43] LABS: Urine Blood NEGATIVE (NEG); Urine Glucose 2+ (NEG); Urine Protein NEGATIVE (NEG); Urine pH 5.5 (5.0-7.0)
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
[2017-11-16 04:08] VITALS: TEMP 99.1
[2017-11-16 04:09] VITALS: BP 124/75; O2SAT 96
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
== END 2017-11-16 04:02 | disposition home or self-care (01) ==
LOC: ER 01:48
DX: F10.220 Alcohol dependence with intoxication, uncomplicated (principal); T43.625A Adverse effect of amphetamines, initial encounter; E11.9 Type 2 diabetes mellitus without complications; I10 Essential (primary) hypertension; F17.210 Nicotine dependence, cigarettes, uncomplicated; Y92.9 Unspecified place or not applicable; Z88.0 Allergy status to penicillin; Z79.4 Long term (current) use of insulin
CPT/HCPCS: 36415; 70450; 71046; 80048; 80307; 80320; 81003; 82805; 85025; 96360; 99284

== ENCOUNTER 2018-08-28 20:24 | Emergency (ER) | payer OTHER, SELFPAY ==
--- OUTSIDE RECORDS SUMMARY | 2018-08-28 20:27 | XMS REPORT | Continuity of Care Document ---
:1975 Author Organization [facility] Address [address] [place] [address] Phone Unavailable Care Team Providers Name Role Phone ZACH MOSQUEDA Primary Care Physician Insurance Providers Guarantor Jhoan Mirandagisela Martin Address [address] [place] [address] Email NONE Payer Self Pay Insurance Subscriber's Name Filippo Miranda Relationship Self / Same As Patient Group Number NA Group Name NA Advance Directives Directive Response Recorded Date/Time Advance Directive on File No 05/12/18 9:00pm Patient/Family Given Education Material R/T Y - 05/12/18...MK 05/12/18 9: 00pm Directives? Chief Complaint and Reason for Visit Chief Complaint CELLULITIS,OSTEOMYELITIS RT FOOT Reason for Visit Uncontrolled diabetes mellitus Osteomyelitis of right foot HTN (hypertension) Anxiety disorder Failure of outpatient treatment Pain Problems Medical Problem Onset Date Status Anxiety disorder Unknown Chronic Failure of outpatient treatment Unknown Acute HTN (hypertension) Unknown Chronic Osteomyelitis of left foot Unknown Acute Osteomyelitis of right foot Unknown Acute Pain Unknown Acute Uncontrolled diabetes mellitus Unknown Chronic Medications Current Home Medications Medication Dose Units Route Directions Days Qty Instructions Start Date Amphet/Dextr 30 30 Mg ORAL Once Daily Tab Insulin 65 Units SUBCUTANEOUS Every Morning Degludec (Tresiba Flextouch) 100 Unit/Ml Inj Insulin Lispro 15 U SUBCUTANEOUS Three Times (Human) Daily Before (Humalog Meals Kwikpen) 100 Unit/Ml Inj Lisinopril 20 Mg ORAL Once Daily (Zestril/Priniv il *) 20 Mg Tab Sertraline Hcl 100 Mg ORAL Once Daily 100 Mg Tab Past Home Medications Medication Directions Ordered Status Albuterol (Ventolin Hfa) 17 Gm As Needed as needed for Discontinued Aers, 1 Puff Respiratory Shortness Of Breath (Inhalation) Azithromycin 250 Mg Tab, 1 Tab Once Daily for Unknown Discontinued Oral Guaifenesin/Codeine Phos * Twice A Day for Unknown Discontinued (Cheratussin Ac 100-10 Mg/5ML *) Syp, 5 Ml Oral Hydroco/Apap 10/ 325 Tab, 2 Tab As Needed as needed for Pain Discontinued Oral Scale 1-5 Levofloxacin (Levaquin 750 Mg*) Daily for Infection 12/18/17 Discontinued 750 Mg Tab, 750 Mg Oral Vancomycin Hcl Pow, 1500 Mg Every 12 Hours for Infection 12/18/17 Discontinued Intravenous Social History Social History Problem Response Recorded Date/Time Onset Date Status Smoker 12/17/2017 8:55am Unknown Active Smoking Status Start Date Stop Date Current every day smoker Hospital Discharge Instructions No hospital discharge instruction information available. Plan of Care Discharge Date 05/18/18 1:37pm Disposition PATIENT DISCHARGE HOME OR SELF Instructions/Education Provided Bone and Joint Infections, Adult Incision and Drainage, Care After Acetaminophen; Hydrocodone tablets or capsules Cellulitis, Adult, [id number] Lisinopril tablets Sertraline tablets Insulin Degludec injection Insulin Lispro injection Forms Provided Portal Welcome Letter Prescriptions See Medication Section Additional Instructions/Education Please follow up with Dr. San on Thursday05/19/18, arrive at 9:30 for 9:45 appointment. outpatient therapy: wound care daily and IV abx Invanz 1gm daily for total of 4 weeks. You are scheduled to begin outpatient IV therapy at 11 am on 05/19/18. Functional Status No functional status information available. Allergies, Adverse Reactions, Alerts Allergen Type Severity Reaction Status Last Updated Cephalexin ([id number]) Allergy Severe ANAPHYLAXIS Active 05/12/18 Penicillins ([id number]) Allergy Severe ANAPHYLAXIS Active 12/18/17 Immunizations No immunization information available. Vital Signs Acute Vital Signs Vital Response Date/Time Blood Pressure 104/65 mm Hg 05/18/2018 9:00am Pulse Pulse Rate (adult) 70 beats per minute (60 - 100) 05/18/2018 9:00am Respiratory Rate 17 breaths per minute (10 - 24) 05/18/2018 8:26am Temperature Source Oral 05/18/2018 7:12am Height 5 ft 11 in 05/12/2018 7:23pm Weight 242.38 lb 05/18/2018 4:16am Body Mass Index 33.8 kg/m^2 05/18/2018 4:16am Results Laboratory Results Test Name Result Units Flags Reference Collection Result Comments Date/Time Date/Time White Blood 9.2 K/ul 4.0-12.3 05/18/2018 05/18/2018 Count 4:35am 4:48am Red Blood Count 4.10 M/ul 3.80-5.80 05/18/2018 05/18/2018 4:35am 4:48am Hemoglobin 13.1 g/dl 11.67-17.2 05/18/2018 05/18/2018 2 4:35am 4:48am Hematocrit 37.9 % 35.0-51.0 05/18/2018 05/18/2018 4:35am 4:48am Mean Corpuscular 92.6 fl 78-96 05/18/2018 05/18/2018 Volume 4:35am 4:48am Mean Corpuscular 32.0 pg 26.8-33.4 05/18/2018 05/18/2018 Hemoglobin 4:35am 4:48am Mean Corpuscular 34.5 g/dl 32.3-36.7 05/18/2018 05/18/2018 Hemoglobin 4:35am 4:48am Concent Red Cell 12.1 % 11.6-15.4 05/18/2018 05/18/2018 Distribution 4:35am 4:48am Width Platelet Count 240 K/ul 115-328 05/18/2018 05/18/2018 4:35am 4:48am Mean Platelet 9.4 fl 8.4-11.8 05/18/2018 05/18/2018 Volume 4:35am 4:48am Neutrophils (%) 46.6 % 44.7-82.4 05/18/2018 05/18/2018 (Auto) 4:35am 4:48am Lymphocytes (%) 38.9 % 10.0-50.0 05/18/2018 05/18/2018 (Auto) 4:35am 4:48am Monocytes (%) 9.2 % 3.9-13.4 05/18/2018 05/18/2018 (Auto) 4:35am 4:48am Eosinophils (%) 3.7 % 0.0-6.43 05/18/2018 05/18/2018 (Auto) 4:35am 4:48am Basophils (%) 1.6 % H 0.0-0.72 05/18/2018 05/18/2018 (Auto) 4:35am 4:48am Prothrombin Time 10.8 SECONDS 10.3-12.3 05/13/2018 05/13/2018 8:15am 10:16am THERAPEUTIC LEVEL: 1.5 to 1.9 times normal range of PT Prothromb Time 0.98 05/13/2018 05/13/2018 International 8:15am 10:16am Recommended therapeutic range for patients receiving Ratio warfarin (coumadin) therapy: INR is 2.0 to 3.0 Recommended range for patients with mechanical prosthetic heart valves: INR is 2.5 to 3.5 Activated 28.9 SECONDS 22.5-37.0 05/13/2018 05/13/2018 Partial 8:15am 10:16am Thromboplast Time Urine Color LIGHT 05/13/2018 05/13/2018 YELLOW 12:52pm 1:05pm Urine Appearance CLEAR CLEAR 05/13/2018 05/13/2018 12:52pm 1:05pm Urine Glucose 4+ (1000 H NEGATIVE 05/13/2018 05/13/2018 mg/dL) 12:52pm 1:05pm Urine Bilirubin NEGATIVE NEGATIVE 05/13/2018 05/13/2018 12:52pm 1:05pm Urine Ketones NEGATIVE NEGATIVE 05/13/2018 05/13/2018 12:52pm 1:05pm Urine Specific 1.015 1.003-1.03 05/13/2018 05/13/2018 [place] 0 12:52pm 1:05pm Urine Blood NEGATIVE NEGATIVE 05/13/2018 05/13/2018 12:52pm 1:05pm Urine pH 5.500 5-9 05/13/2018 05/13/2018 12:52pm 1:05pm Urine Protein NEGATIVE NEGATIVE 05/13/2018 05/13/2018 12:52pm 1:05pm Urine NORMAL mg/dL 0.2-1.0 05/13/2018 05/13/2018 Urobilinogen 12:52pm 1:05pm Urine Nitrate NEGATIVE NEGATIVE 05/13/2018 05/13/2018 12:52pm 1:05pm Urine Leukocyte NEGATIVE NEGATIVE 05/13/2018 05/13/2018 Esterase 12:52pm 1:05pm Urine RBC <1 /hpf 0-5 05/13/2018 05/13/2018 12:52pm 1:05pm Urine WBC 1-5 /hpf 0-5 05/13/2018 05/13/2018 12:52pm 1:05pm Urine Epithelial <1 /hpf 0-5 05/13/2018 05/13/2018 Cells 12:52pm 1:05pm Urine Bacteria None /hpf None 05/13/2018 05/13/2018 Detected Detect 12:52pm 1:05pm Urine Casts None /lpf None 05/13/2018 05/13/2018 Detected Detect 12:52pm 1:05pm Urine Culture NO 05/13/2018 05/13/2018 Reflexed 12:52pm 2:12pm POC Capillary 256 mg/dL H 70.0 - 110 05/18/2018 05/18/2018 Blood Glucose 11:35am 11:36am (Chem) Random Glucose 251 mg/dL H 74-106 05/18/2018 05/18/2018 4:35am 5:04am Blood Urea 15 mg/dL 6-05/18/2018 05/18/2018 Nitrogen 4:35am 5:04am Serum Osmolality 283 280-300 05/18/2018 05/18/2018 4:35am 5:04am Creatinine 0.8 mg/dL 0.70-1.20 05/18/2018 05/18/2018 4:35am 5:04am Glomerular > 60.00 05/18/2018 05/18/2018 GFR RESULTS ARE REPORTED IN mL/min/1.73m2. Filtration Rate 4:35am 5:04am Calc Normal GFR: >60mL/min Moderately decreased GFR: 30-59 mL/min Severely decreased GFR: 15-29 mL/min Kidney Failure (or Dialysis): <15 mL/min The calculated eGFR is not valid for patients younger than 18 years or older than 75 years. BUN/Creatinine 18.8 12-05/18/2018 05/18/2018 Ratio 4:35am 5:04am Sodium Level 137 mmol/L 135-145 05/18/2018 05/18/2018 4:35am 5:04am Potassium Level 4.1 mmol/L 3.5-5.2 05/18/2018 05/18/2018 4:35am 5:04am Chloride Level 100 mmol/L 98-108 05/18/2018 05/18/2018 4:35am 5:04am Carbon Dioxide 24 mmol/L 21-32 05/18/2018 05/18/2018 Level 4:35am 5:04am Anion Gap 17.1 mEq/L 12-20 05/18/2018 05/18/2018 4:35am 5:04am Calcium Level 9.5 mg/dL 8.6-10.0 05/18/2018 05/18/2018 4:35am 5:04am Phosphorus Level 4.2 mg/dL 2.5-4.5 05/13/2018 05/13/2018 8:15am 9:27am Magnesium Level 2.0 mg/dL 1.6-2.6 05/13/2018 05/13/2018 8:15am 9:27am Total Protein 6.8 g/dL 6.6-8.7 05/18/2018 05/18/2018 4:35am 5:04am Albumin 4.0 g/dL 3.5-5.2 05/18/2018 05/18/2018 4:35am 5:04am Globulin 2.8 gm/dL 05/18/2018 05/18/2018 4:35am 5:04am Albumin/Globulin 1.4 >1.0 05/18/2018 05/18/2018 Ratio 4:35am 5:04am Total Bilirubin < 0.3 mg/dL 0.0-1.2 05/18/2018 05/18/2018 4:35am 5:04am Aspartate Amino 14 U/L L 15-40 05/18/2018 05/18/2018 Transf 4:35am 5:04am (AST/SGOT) Alanine 23 U/L 0-41 05/18/2018 05/18/2018 Aminotransferase 4:35am 5:04am (ALT/SGPT) Hemoglobin A1c 9.1 % H 4.0-6.0 05/13/2018 05/13/2018 8:15am 9:27am Total Alkaline 101 U/L 40-130 05/18/2018 05/18/2018 Phosphatase 4:35am 5:04am Cholesterol 166 mg/dL 150-200 05/13/2018 05/13/2018 Level 8:15am 9:27am Triglycerides 169 mg/dL H <150 05/13/2018 05/13/2018 Level 8:15am 9:27am HDL Cholesterol 43 mg/dL L >55 05/13/2018 05/13/2018 HDL EXPECTED VALUES : 8:15am 9:27am FEMALES: >65 mg/dL NO RISK 45-65 mg/dL MODERATE RISK <45 mg/dL HIGH RISK MALES: >55 mg/dL NO RISK 35-55 mg/dL MODERATE RISK <35 mg/dL HIGH RISK LDL Cholesterol 116 mg/dL H <100 05/13/2018 05/13/2018 LDL Expected Values: 8:15am 9:27am Optimal <100 mg/dL Near optimal/above optimal 100-129 mg/dL Borderline high 130-159 mg/dL High 160-189 mg/dL Very high >190 mg/dL Coronary Heart 3.860 05/13/2018 05/13/2018 NATIONAL CHOLESTEROL GUIDELINES Disease Risk 8:15am 9:27am Ratio [facility] ([facility]) guidelines for classificaton, testing and management of cholesterol levels in adults over 20 years of age. This new classification creates three categories of risk for coronary heart disease, regardless of age or sex, according to total and LDL cholesterols levels: Based on total cholesterol level Desirable <200 mg/dl Borderline-high 200-239 mg/dl High >=240 mg/dl Based on cholesterol ratio CHD RISK CHOL/HDL RATIO MALE FEMALE 0.5 x Average 3.4 3.3 1.0 x Average 5.0 4.4 2.0 x Average 9.6 7.1 3.0 x Average 13.5 11.0 Vancomycin Level 13.9 ug/mL 10-20 05/18/2018 05/18/2018 Trough 9:03am 9:25am Thyroid 2.33 uIU/mL 0.36-3.74 05/13/2018 05/13/2018 Stimulating 8:15am 9:41am Hormone (TSH) Thyroxine (T4) 6.3 ug/dL 4.5-11.7 05/13/2018 05/13/2018 8:15am 9:41am Microbiology Results Procedure Source Organism/Result Collection Result Result Status Date/Time Date/Time Blood Culture Blood SPECIMEN HAS BEEN 05/13/2018 05/13/2018 Preliminary RECEIVED IN LAB AND 4:44pm 4:46pm IS IN PROGRESS. Wound Culture Foot, Right ESCHERICHIA COLI 05/14/2018 05/16/2018 Final ESBL 9:54am 12:36pm Procedures Procedure Status Date Provider(s) Incision and drainage Completed 05/14/18 DENICE SAN DPM Magnetic resonance imaging of right foot Active 05/12/18 DENICE SANM without contrast X-ray of chest, single view Completed 05/12/18 JONAH MALDONADO MD Magnetic resonance imaging of right foot Completed 05/13/18 JONAH MALDONADO MD without contrast X-ray of right foot, three views Completed 05/14/18 EDNICE SAN DPM Encounters Encounter Location Arrival/Admit Date Discharge/Depart Date Attending Provider Discharged [place] 05/12/18 6:48pm 05/18/18 1:37pm JONAH MALDONADO [facility] Dottie PARKER MD Medical Ctr Recent Diagnosis Uncontrolled diabetes mellitus Osteomyelitis of right foot HTN (hypertension) Anxiety disorder Failure of outpatient treatment Pain
--- OUTSIDE RECORDS SUMMARY | 2018-08-28 20:27 | XMS REPORT ---
:1975 [facility] Address [address] [place] [address] [address] [place] [address] Care Team Providers Name Role Phone Unavailable Unavailable Unavailable Problems This patient has no known problems. Allergies, Adverse Reactions, Alerts This patient has no known allergies or adverse reactions. Medications This patient has no known medications.
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
--- OUTSIDE RECORDS SUMMARY | 2018-08-28 20:28 | XMS REPORT | Continuity of Care Document ---
:1975 Author Organization [facility] Address [address] [place] [address] Phone Unavailable Care Team Providers Name Role Phone ZACH MOSQUEDA Primary Care Physician Insurance Providers Guarantor Filippo Miranda Address [address] [place] [phone] Email NONE Payer Self Pay Insurance Subscriber's [...] As Needed as 10/325MG * needed for ([place] Pain 10/325MG *) 1 Tab Tab Insulin [...] Type Severity Reaction Status Last Updated Cephalexin ([id number]) Allergy Severe ANAPHYLAXIS Active 05/12/18 Penicillins ([id number]) Allergy Severe ANAPHYLAXIS Active 12/18/17 Immunizations No [...] 1:05pm Urine Specific 1.015 1.003-1.03 05/13/2018 05/13/2018 [place] 0 12:52pm 1:05pm Urine Blood NEGATIVE NEGATIVE [...] Arrival/Admit Date Discharge/Depart Date Attending Provider Discharged [place] 05/20/18 11:07am 05/20/18 11:59pm MENA [facility] Discharged [place] 05/19/18 11:10am 05/20/18 11:59pm JIM [facility] 

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
--- OUTSIDE RECORDS SUMMARY | 2018-08-28 20:29 | XMS REPORT | Continuity of Care Document ---
:1975 Author Organization [facility] Address [address] [place] [address] Phone Unavailable Care Team Providers Name Role Phone ZACH MOSQUEDA Primary Care Physician Insurance Providers Guarantor Filippo Miranda Address [address] [place] [phone] Email NONE Payer Self Pay Insurance Subscriber's [...] As Needed as 10/325MG * needed for ([place] Pain 10/325MG *) 1 Tab Tab Insulin [...] Type Severity Reaction Status Last Updated Cephalexin ([id number]) Allergy Severe ANAPHYLAXIS Active 05/12/18 Penicillins ([id number]) Allergy Severe ANAPHYLAXIS Active 12/18/17 Immunizations No [...] 1:05pm Urine Specific 1.015 1.003-1.03 05/13/2018 05/13/2018 [place] 0 12:52pm 1:05pm Urine Blood NEGATIVE NEGATIVE [...] 05/14/18 DENICE SAN DPM OPEN APPROACH NICOLETTE BEASLEY CRNA INSERTION OF INFUSION DEV INTO SUP [...] Arrival/Admit Date Discharge/Depart Date Attending Provider Discharged [place] 06/02/18 10:00am 06/17/18 11:59pm [place] FERNANDEZ [facility] J[facility]IE [facility] 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 WORKER-C Registered [place] 05/26/18 10:50am MENA [facility] DENICE Bhatt DPM [facility] Discharged [place] 05/21/18 10:13am 06/17/18 11:59pm MENA [facility] DENICE Bhatt DPM [facility] Discharged [place] 05/20/18 11:07am 05/20/18 11:59pm MENA [facility] DENICE Bhatt DPM [facility] Discharged [place] 05/19/18 11:10am 05/20/18 11:59pm JIM [facility] JOSIE A [facility]tr TAR WORKER-C Registered [place] 05/19/18 9:21am MENA [facility] DENICE Bhatt D[facility] Discharged [place] 05/12/18 6:48pm 05/18/18 1:37pm JONAH MALDONADO [facility]
[2018-08-28 21:07] LABS: Absolute Lymphocytes (CBC) 1.8 K/uL (0.7-4.9); Absolute Monocytes 0.8 K/uL (0.1-1.3); Absolute Neutrophil 10.8 K/uL (1.8-8.0); Basophils % 0.5 % (0-1.3); Eosinophils % 1.3 % (0-4.4); Hematocrit 46.1 % (39.6-49.0); Lymphocytes % 13.3 % (15.3-44.8); MPV 10.6 fL (7.6-11.3); Monocytes % 6.1 % (3.3-12.3); RBC Red Blood Cell Count 4.98 M/uL (4.33-5.43)
[2018-08-28] MEDS ORDERED: NA CHLORIDE 0.9% 1,000 ML ONE ×2 (21:19→23:44)
[2018-08-28] MEDS ORDERED: KETOROLAC 30 MG/ML INJ ONE (21:19)
[2018-08-28 21:32] LABS: Potassium 3.8 mmol/L (3.5-5.1)
[2018-08-28] MEDS ORDERED: INSULIN -REGULAR HUMAN 50 UNIT/0.5 ML ML ONE ×2 (22:29→23:44)
[2018-08-29] MEDS ORDERED: INSULIN -REGULAR HUMAN 50 UNIT/0.5 ML ML ONE (00:51)
--- NOTE | 2018-08-29 01:44 | ER ---
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 I went to the hospital a few weeks ago and had blood infeciton. Transition of care: patient was not received from another setting of care. Onset of symptoms was August 28, 2018. Risk Assessment: Do you want to hurt yourself or someone else? Patient reports no desire to harm self or others. Initial Sepsis Screen: Does the patient meet any 2 criteria? HR > 90 bpm. No. Patient's initial sepsis screen is negative. Does the patient have a suspected source of infection? Yes:. Care prior to arrival: None. 20:31 Method Of Arrival: Ambulatory la1 20:31 Acuity: RUBIA 2 la1 Historical: - Allergies: 20:33 PENICILLINS; la1 - PMHx: 20:33 Diabetes - IDDM; Hypertension; neuropathy; pancreas doesn't work; la1 - PSHx: 20:33 toe amputations; hand sx; la1 - Immunization history:: Adult Immunizations up to date. - Social history:: Smoking status: Patient uses tobacco products, smokes one-half pack cigarettes per day. - Ebola Screening: : No symptoms or risks identified at this time. Screenin:38 Abuse screen: Denies threats or abuse. Denies injuries from another. Nutritional aa1 screening: No deficits noted. Tuberculosis screening: No symptoms or risk factors identified. Fall Risk None identified. Assessment: 20:38 General: Appears in no apparent distress. comfortable, Behavior is calm, cooperative, aa1 appropriate for age. Pain: Complains of pain in ball of right foot Quality of pain is described as burning, throbbing, Pain began 2-3 days ago. Is continuous. Neuro: Level of Consciousness is awake, alert, obeys commands, Oriented to person, place, time, situation, Moves all extremities. Full function Gait is steady, Speech is normal. Cardiovascular: Pulses are 2+ in right dorsalis pedis artery and left dorsalis pedis artery. Respiratory: Airway is patent Respiratory effort is even, unlabored, Respiratory pattern is regular, symmetrical. GI: No signs and/or symptoms were reported involving the gastrointestinal system. : No signs and/or symptoms were reported regarding the genitourinary system. EENT: No signs and/or symptoms were reported regarding the EENT system. Derm: Skin is intact, is healthy with good turgor, Skin is pink, warm \T\ dry. Wound noted ball of right foot Wound is no erythema or drainage noted. Mild dark discoloration of skin noted that is the approx size of a quarter. No obvious signs of infection noted. Musculoskeletal: Circulation, motion, and sensation intact. Capillary refill < 3 seconds, Range of motion: intact in all extremities. 21:30 Reassessment: Patient appears in no apparent distress at this time. Patient and/or aa1 family updated on plan of care and expected duration. Pain level reassessed. Patient is alert, oriented x 3, equal unlabored respirations, skin warm/dry/pink. Awaiting x-ray results. 22:20 Reassessment: Patient appears in no apparent distress at this time. Patient and/or aa1 family updated on plan of care and expected duration. Pain level reassessed. Patient is alert, oriented x 3, equal unlabored respirations, skin warm/dry/pink. Pt given insulin at this time, will continue to monitor. 23:19 Reassessment: Patient appears in no apparent distress at this time. Patient and/or aa1 family updated on plan of care and expected duration. Pain level reassessed. Patient is alert, oriented x 3, equal unlabored respirations, skin warm/dry/pink. Awaiting provider reassessment. 23:26 Reassessment: Dr. Taylor at bedside. FSBS reading >500; glucose level ordered and MD spence notified. Pt to receive additional NS bolus and insulin IVP. Will continue to monitor. 08/29 00:33 Reassessment: Patient appears in no apparent distress at this time. Patient and/or aa1 family updated on plan of care and expected duration. Pain level reassessed. Patient is alert, oriented x 3, equal unlabored respirations, skin warm/dry/pink. Repeat FSBS 431; Dr. Stark notified. 01:56 Reassessment: Patient appears in no apparent distress at this time. Patient is alert, aa1 oriented x 3, equal unlabored respirations, skin warm/dry/pink. Discussed d/c \T\ f/u instructions with pt; denies questions or concerns at this time. Ambulatory to lobby with steady gait. Patient states feeling better. Patient states symptoms have improved. Vital Signs: 08/28 20:30 BP 130 / 74; Pulse 129; Resp 16; Temp 98.7(O); Pulse Ox 95% on R/A; Weight 108.86 kg; la1 Height 5 ft. 11 in. (180.34 cm); Pain 6/10; 21:30 BP 121 / 76; Pulse 120; Resp 18; Pulse Ox 99% on R/A; aa1 22:30 BP 117 / 65; Pulse 122; Resp 16; Pulse Ox 97% on R/A; aa1 23:20 BP 147 / 79; Pulse 129; Resp 16; Temp 98.7(O); Pulse Ox 99% on R/A; aa1 08/29 00:33 BP 130 / 90; Pulse 117; Resp 16; Pulse Ox 97% on R/A; aa1 01:56 BP 123 / 80; Pulse 109; Resp 16; Temp 98.5; Pulse Ox 99% on R/A; Pain 4/10; aa1 08/28 20:30 Body Mass Index 33.47 (108.86 kg, 180.34 cm) la1 ED Course: 08/28 20:27 Patient arrived in ED. mr 20:32 Triage completed. la1 20:32 Arm band placed on left wrist. la1 20:34 Stanley Stark MD is Attending Physician. kdr 20:38 Patient has correct armband on for positive identification. Placed in gown. Bed in low aa1 position. Call light in reach. Pulse ox on. NIBP on. 20:40 Initial lab(s) drawn, by me, sent to lab. First set of blood cultures drawn by me. aa1 Inserted saline lock: 20 gauge in right antecubital area, using aseptic technique. Blood collected. 20:58 Second set of blood cultures drawn by me. aa1 21:03 Autenrieth, Cassia, RN is Primary Nurse. aa1 21:29 Foot Right 3 View XRAY In Process Unspecified. EDMS 08/29 01:56 No provider procedures requiring assistance completed. IV discontinued, intact, aa1 bleeding controlled, No redness/swelling at site. Pressure dressing applied. Administered Medications: 08/28 21:09 Drug: NS 0.9% 1000 ml Route: IV; Rate: 1 bolus; Site: right antecubital; aa1 22:19 Follow up: IV Status: Completed infusion; IV Intake: 1000ml aa 21:09 Drug: TORadol - Ketorolac 15 mg Route: IVP; Site: right antecubital; aa1 22:09 Follow up: Response: No adverse reaction; Pain is unchanged, physician notified; MD spence notified, no order received 22:19 Drug: Insulin Regular Human 10 units {Co-Signature: fc (Radha August RN).} Route: jd3 IVP; Site: right antecubital; 23:30 Follow up: Response: No adverse reaction; Blood sugar is unchanged; MD notified 23:35 Drug: Insulin Regular Human 10 units {Co-Signature: jd3 (Rell Connolly RN).} Route: aa1 IVP; Site: right antecubital; 08/29 00:40 Follow up: Response: No adverse reaction; Blood sugar is lowered 08/28 23:36 Drug: NS 0.9% 1000 ml Route: IV; Rate: 1000 ml; Site: right antecubital; aa1 08/29 00:50 Follow up: IV Status: Completed infusion; IV Intake: 1000ml aa 00:40 Drug: Insulin Regular Human 6 units {Co-Signature: la1 (Mauricio Andres RN).} Route: IVP; aa1 Site: right antecubital; 01:22 Follow up: Response: No adverse reaction; Blood sugar is lowered aa1 Point of Care Testing: Blood Glucose: 08/28 23:26 Blood Glucose: High (>450 mg/dL); aa1 08/29 00:33 Blood Glucose: 431 mg/dL; aa1 01:20 Blood Glucose: 350 mg/dL; ag4 08/28 23:26 MD notified Ranges: Intake: 22:19 IV: 1000ml; Total: 1000ml. aa1 05/12 00:50 IV: 1000ml; Total: 2000ml. aa1 Outcome: 01:43 Discharge ordered by . kdr 01:56 Discharged to home ambulatory. aa1 01:56 Condition: good 01:56 Discharge instructions given to patient, Instructed on discharge instructions, follow up and referral plans. medication usage, Demonstrated understanding of instructions, follow-up care, medications, Prescriptions given X 2. 01:57 Patient left the ED. aa1 Addendum: 09/03/2018 16:54 Addendum: Culture Results: Positive blood culture. No further action required. Bacteria d m5 sensitive to prescribed antibiotic. Signatures: Dispatcher [employer] EDMS Whitley Sierra, RN RN dm5 Cassia Pereira RN RN aa1 Stanley Stark MD MD kdr Rivera, Mary mr Attema, Mauricio, RN RN armando1 Rell Connolly RN RN jd3 Yobany Dong ag4 Radha shah
--- NOTE | 2018-08-29 01:44 | EDPHYS ---
Physician Documentation [facility] Name: Filippo Miranda Age: 43 yrs Sex: Male : 1975 Arrival Date: 08/28/2018 Time: 20:27 Bed 7 Private MD: ED Physician Stanley Stark HPI: 08/29 03:39 This 43 yrs old Male presents to ER via Ambulatory with complaints of Toe kdr Problem. 03:39 The patient presents with pain, that is chronic, swelling, tenderness. The complaints kdr affect the right foot. Context: The problem was sustained at an unknown location, resulted from an unknown cause, The patient is a diabetic. Onset: The symptoms/episode began/occurred at an unknown time. Modifying factors: The symptoms are alleviated by nothing, the symptoms are aggravated by weight bearing. Associated signs and symptoms: Pertinent positives: swelling, Pertinent negatives: calf tenderness, fever, nausea, numbness, rash, tingling, vomiting, warmth. Severity of symptoms: At their worst the symptoms were mild, in the emergency department the symptoms are unchanged. It is unknown whether or not the patient has had similar symptoms in the past. The patient has been seen at [place] for the same problem. Historical: - Allergies: 08/28 20:33 PENICILLINS; la1 - PMHx: 20:33 Diabetes - IDDM; Hypertension; neuropathy; pancreas doesn't work; la1 - PSHx: 20:33 toe amputations; hand sx; la1 - Immunization history:: Adult Immunizations up to date. - Social history:: Smoking status: Patient uses tobacco products, smokes one-half pack cigarettes per day. - Ebola Screening: : No symptoms or risks identified at this time. ROS: 08/29 03:39 MS/extremity: Positive for pain, swelling, tenderness, It was noted that when the kdr patient was unable to see the examiner touch his foot, he did not have any apparent pain. 03:47 Constitutional: Negative for fever, chills, and weight loss. kdr Exam: 03:39 Constitutional: This is a well developed, well nourished patient who is awake, alert, kdr and in no acute distress. Head/Face: Normocephalic, atraumatic. 03:39 Musculoskeletal/extremity: Extremities: grossly normal except: The patient has a prior amputation of the right great toe. The toes and distal foot seem swollen but not warm and significantly inflamed to suggest an aggressive cellulitis. Vital Signs: 08/28 20:30 BP 130 / 74; Pulse 129; Resp 16; Temp 98.7(O); Pulse Ox 95% on R/A; Weight 108.86 kg; la1 Height 5 ft. 11 in. (180.34 cm); Pain 6/10; 21:30 BP 121 / 76; Pulse 120; Resp 18; Pulse Ox 99% on R/A; aa1 22:30 BP 117 / 65; Pulse 122; Resp 16; Pulse Ox 97% on R/A; aa1 23:20 BP 147 / 79; Pulse 129; Resp 16; Temp 98.7(O); Pulse Ox 99% on R/A; aa1 08/29 00:33 BP 130 / 90; Pulse 117; Resp 16; Pulse Ox 97% on R/A; aa1 01:56 BP 123 / 80; Pulse 109; Resp 16; Temp 98.5; Pulse Ox 99% on R/A; Pain 4/10; aa1 08/28 20:30 Body Mass Index 33.47 (108.86 kg, 180.34 cm) la1 MDM: 08/28 22:59 Data reviewed: vital signs, nurses notes. Counseling: I had a detailed discussion with kdr the patient and/or guardian regarding: the historical points, exam findings, and any diagnostic results supporting the discharge/admit diagnosis, lab results, radiology results. Physician consultation: Aileen Taylor MD was called at 22:59, was contacted at 22:59, regarding consult, patient's condition, need to come to ED to see patient, and will see patient in ED. 08/29 01:43 Patient medically screened. kdr 03:36 ED course: Dr. Taylor evaluated. Recommended if glucose control can be improved that kdr patient may be safely discharged with abx and close follow-up. 08/28 20:40 Order name: CBC with Diff; Complete Time: 21:47 kdr 08/28 20:40 Order name: Chem 7; Complete Time: 21:47 kdr 08/28 20:40 Order name: Blood Culture Adult (2) kdr 08/28 21:03 Order name: Foot Right 3 View XRAY kdr 08/28 23:26 Order name: Glucose; Complete Time: 00:22 08/29 00:06 Order name: FSBG - FOR PT WITH NO ID kdr Administered Medications: 08/28 21:09 Drug: NS 0.9% 1000 ml Route: IV; Rate: 1 bolus; Site: right antecubital; 22:19 Follow up: IV Status: Completed infusion; IV Intake: 1000ml 21:09 Drug: TORadol - Ketorolac 15 mg Route: IVP; Site: right antecubital; 22:09 Follow up: Response: No adverse reaction; Pain is unchanged, physician notified; MD spence notified, no order received 22:19 Drug: Insulin Regular Human 10 units {Co-Signature: fc (Radha August RN).} Route: jd3 IVP; Site: right antecubital; 23:30 Follow up: Response: No adverse reaction; Blood sugar is unchanged; MD notified 23:35 Drug: Insulin Regular Human 10 units {Co-Signature: jd3 (Rell Connolly RN).} Route: aa1 IVP; Site: right antecubital; 08/29 00:40 Follow up: Response: No adverse reaction; Blood sugar is lowered 08/28 23:36 Drug: NS 0.9% 1000 ml Route: IV; Rate: 1000 ml; Site: right antecubital; 08/29 00:50 Follow up: IV Status: Completed infusion; IV Intake: 1000ml 00:40 Drug: Insulin Regular Human 6 units {Co-Signature: la1 (Mauricio Andres RN).} Route: IVP; Site: right antecubital; 01:22 Follow up: Response: No adverse reaction; Blood sugar is lowered Point of Care Testing: Blood Glucose: 08/28 23:26 Blood Glucose: High (>450 mg/dL); aa08/29 00:33 Blood Glucose: 431 mg/dL; aa 01:20 Blood Glucose: 350 mg/dL; ag4 08/28 23:26 MD notified Ranges: Critical Glucose Levels:Adult <50 mg/dl or >400 mg/dl <40 mg/dl or >180 mg/dl Disposition: 08/29/18 01:43 Discharged to Home. Impression: Hyperglycemia, unspecified, Cellulitis of right toe, Cellulitis of right lower limb - Right foot. - Condition is Stable. - Discharge Instructions: Diabetes and Foot Care, Cellulitis, Adult, [id number], Hyperglycemia, [id number], Insulin Treatment for Diabetes. - Prescriptions for metformin 500 mg Oral tablet extended release 24 hr - take 1 tablet by ORAL route once daily with the evening meal; 20 tablet. Clindamycin HCl 300 mg Oral Capsule - take 1 capsule by ORAL route every 6 hours for 10 days; 40 capsule. Bactrim DS 800- 160 mg Oral Tablet - take 1 tablet by ORAL route every 12 hours for 10 days; 20 tablet. - Medication Reconciliation Form, Thank You Letter form. - Follow up: Private Physician; When: 2 - 3 days; Reason: Wound Recheck, If symptoms return, Further diagnostic work-up, Recheck today's complaints, Continuance of care, Re-evaluation by your physician. - Problem is an acute exacerbation. - Symptoms have improved. Signatures: Dispatcher [employer] EDMS Cassia Pereira RN RN aa1 Stanley Stark MD MD kdr Attema, Lee, RN RN la1 Rell Connolly RN RN jd3 Radah Connolly RN jd3 Mauricio Andres RN la1 Corrections: (The following items were deleted from the chart) 08/29 01:57 01:43 08/29/2018 01:43 Discharged to Home. Impression: Hyperglycemia, unspecified; aa1 Cellulitis of right toe; Cellulitis of right lower limb - Right foot. Condition is Stable. Forms are Medication Reconciliation Form, Thank You Letter, Antibiotic Education, Prescription Opioid Use. Follow up: Private Physician; When: 2 - 3 days; Reason: Wound Recheck, If symptoms return, Further diagnostic work-up, Recheck today's complaints, Continuance of care, Re-evaluation by your physician. Problem is an acute exacerbation. Symptoms have improved. kdr
[2018-08-29 06:07] VITALS: BP 123/80; TEMP 98.5; O2SAT 99
--- NOTE | 2018-08-29 07:45 | RAD REPORT ---
EXAM DESCRIPTION: RAD - Foot Right 3 View - 08/28/2018 9:31 pm CLINICAL HISTORY: Foot pain and swelling, diabetes COMPARISON: January 2016 FINDINGS: Since prior imaging the first toe and distal first metatarsal have been resected. No inter vening imaging. Baseline appearance to the remnant first metatarsal is unknown. There is no martha bon e destruction at this site. Degenerative changes involve the third metatarsal head. Second proximal p halanx is dislocated at the second MTP joint. Lateral angulation of the third and fourth proximal pha langes noted at the MTP joints. Again, no martha bone destructive changes seen. Soft tissue swelling i s present around the distal foot. No air or foreign body in the soft tissues. Degenerative changes ar e present as well at the tarsal metatarsal articulations second-fourth. IMPRESSION: Postsurgical and degenerative changes are present in the right foot as detailed. Dislocation of the second proximal phalanx is present. No martha destruction of bone to indicate osteomyelitis. Osteomyelitis can exist prior to radiographic bone destruction.
--- NOTE | 2018-08-29 16:09 | P.CNS ---
Date of Consult: 08/28/18 Reason for Consult: Diabetic foot/hyperglycemia Requesting Physician: Stanley Stark Primary Care Provider: Suzan Chief Complaint: diabetic foot History of Present Illness: Patient is a 43-year-old gentleman who came into the emergency room the diabetic with sore. It looks like he may have stepped on something. At this time his foot is not erythematous or edematous. He does have a little bit of bruising which is about half a cm in diameter. There is no fluctuance and no drainage from this area. It is a completely close wound. It appears he had a callus there as well. patient is only having pain there when his eyes are open. When examining him with his eyes closed and pressing on the area where he has the small bruise he exhibits no pain whatsoever. When his eyes are open and I could close to the area he winces in pain. I am not sure exactly why this is the case but with his degree of diabetic neuropathy and him being unable to localize anything below that she can I do not think he is experiencing any significant pain from the lesion on his foot. His blood sugars are also significantly elevated. We got him on IV hydration and regular insulin. Spoke with the ER physician who is recommending that he will discharge patient with outpatient follow-up. He sees a bunk house worker as Shannan and I told him to contact me if he is not able to get in to see him over the next 7 days. Another bunk house worker and I can get him in as well. I left my cell phone number to call me if he has any issues with getting a follow-up appointment with his regular bunk house worker. Allergies Penicillins Allergy (Mild, Verified 12/18/11 00:33) Hives/Rash Home Medications: Gabapentin 600 mg PO TID 12/18/11 Insulin 70/30 NPH/Reg Human [Novolin 70/30*] units SQ 12/18/11 Sertraline HCl 150 mg PO DAILY 12/18/11 Simvastatin 40 mg PO BEDTIME 12/18/11 Hydrocodone Bit/Acetaminophen [Hydrocodon-Acetaminophn 10-650] 1 each PO Q6HR PRN 01/30/12 Lisinopril [Prinivil*] 20 mg PO DAILY 03/29/12 Hydrocodone/Acetaminophen [Vicodin 5-500 Tablet] 1 each PO Q3HP PRN #30 tablet 04/01/12 Sulfamethoxazole/Trimethoprim [Bactrim Ds Tablet] 1 each PO Q12H #20 tablet 01/04 - Past Medical/Surgical History Diabetic: Yes -: Diabetes -: multiple amputations on the right and left toe - Family History Father Medical History: Diabetes - Social History Smoking Status: Current every day smoker Alcohol use: Yes CD- Drugs: No Caffeine use: Yes Review of Systems 10-point ROS is otherwise unremarkable Physical Examination Temp Pulse Resp BP Pulse Ox 98.5 F 109 H 16 123/80 08/29/18 01:56 08/29/18 01:56 08/29/18 01:56 08/29/18 01:56 General: Alert, In no apparent distress, Oriented x3 HEENT: Atraumatic, Normocephalic Neck: Supple, 2+ carotid pulse no bruit, JVD not distended, No Thyromegaly Respiratory: Clear to auscultation bilaterally, Normal air movement Cardiovascular: Regular rate/rhythm, Normal S1 S2, No murmurs Gastrointestinal: Normal bowel sounds, Hypoactive, Soft and benign, Non- distended Musculoskeletal: No clubbing, No swelling, No contractures Integumentary: No tenderness/swelling, No erythema, No warmth, Other (callous with 1/2cm bruising) Neurological: Normal gait, Normal speech, Normal strength at 5/5 x4 extr, Normal tone, Cranial nerves 3-12 intact, Abnormal sensation Laboratory Data (last 24 hrs) 08/28/18 23:37: Glucose 589 H* 08/28/18 20:40: Sodium 131 L, Potassium 3.8, BUN 25 H, Creatinine 1.76 H, Glucose 633 H* 08/28/18 20:40: WBC 13.7 H, Hgb 15.8, Hct 46.1, Plt Count 194 - Problems (1) Diabetic foot Status: Acute (2) Diabetic neuropathy Status: Acute (3) Hyperosmolar (nonketotic) coma Status: Acute (4) Hyperglycemia Status: Acute Conclusions/ Impression: Plan: 1. IV hydration 2. Strict blood sugar control 3. outpatient follow-up with podiatry 4. outpatient antibiotics 5. check hemoglobin A1c 6. GI and DVT prophylaxis Critical Care: No Time Spent Managing Pts care (In Minutes): 40
== END 2018-08-29 01:57 | disposition home or self-care (01) ==
LOC: ER 20:24
DX: L03.031 Cellulitis of right toe (principal); L03.115 Cellulitis of right lower limb; F17.210 Nicotine dependence, cigarettes, uncomplicated; I10 Essential (primary) hypertension; Z88.0 Allergy status to penicillin; Z89.429 Acquired absence of other toe(s), unspecified side
CPT/HCPCS: 36415; 80048; 82947; 82962; 85025; 87040; 87077; 87186; 87205; 96361; 96374; 96375; 99284; J7030